=== PATIENT | female | born 1985 | race Caucasian/White ===

== ENCOUNTER 2020-05-30 15:50 | Emergency (ER) | payer OTHER ==
[2020-05-30 16:09] VITALS: BP 116/76; PULSE 71; TEMP 98.8; BMI 31.6
[2020-05-30] MEDS ORDERED: KETOROLAC TROMETHAMINE 30 MG/1 ML VIAL IM ONE (16:36)
[2020-05-30] MEDS ORDERED: CYCLOBENZAPRINE HCL 10 MG TABLET (FP) PO ONE (16:36)
[2020-05-30] MEDS ORDERED: LIDOCAINE 5% TOPICAL PATCH TP ONE (16:36)
[2020-05-30] MEDS ORDERED: LIDOCAINE PATCH REMOVAL MC SCH (22:00)
== END 2020-05-30 17:25 | disposition home or self-care (01) ==
LOC: JERFT 15:50
PROC: 3E0233Z Introduction of Anti-inflammatory into Muscle, Percutaneous Approach (ICD-10-PCS; principal; 2020-05-30)
DX: M54.41 Lumbago with sciatica, right side (principal)
CPT/HCPCS: 72100-TC-FY; 99284-25

== ENCOUNTER 2021-06-01 11:28 | Emergency (ER) | payer OTHER ==
[2021-06-01 11:37] VITALS: BP 116/74; PULSE 78; TEMP 98.3; BMI 29.0
[2021-06-01] MEDS ORDERED: IBUPROFEN 400 MG TABLET (FP) PO ONE ×2 (12:25→12:27)
== END 2021-06-01 12:30 | disposition home or self-care (01) ==
LOC: JERFT 11:28
DX: M25.562 Pain in left knee (principal)
CPT/HCPCS: 99283-25

== ENCOUNTER 2021-08-25 10:41 | Emergency (ER) | payer OTHER ==
[2021-08-25 10:51] VITALS: BP 134/84; PULSE 80; TEMP 98; BMI 29.8
[2021-08-25] MEDS ORDERED: KETOROLAC TROMETHAMINE 30 MG/1 ML VIAL IVPUSH ONE (12:20)
[2021-08-25] MEDS ORDERED: KETOROLAC TROMETHAMINE 30 MG/1 ML VIAL ONE (12:36)
[2021-08-25 13:30] LABS: BASO % 0.6 % (0-2.0); HEMATOCRIT 40.4 % (32.4-45.2); HEMOGLOBIN 13.5 GM/dL (10.7-15.3); LYMPH % 37.7 % (8-40); MCHC 33.4 g/dl (32.0-36.0); MEAN CELL VOLUME 83.9 fl (80-96); MEAN PLT VOLUME 9.1 fl (7.5-11.1); MONO % 8.7 % (3.8-10.2); RBC 4.81 M/mm3 (3.60-5.2); RDW 13.9 % (11.6-15.6); WHITE BLOOD COUNT 4.9 K/mm3 (4.0-10.0)
[2021-08-25 13:32] LABS: PLATELET COUNT 269 10^3/uL (134-434)
[2021-08-25 13:48] LABS: ALBUMIN 3.9 g/dl (3.4-5.0); BLOOD UREA NITROGEN 11.2 mg/dL (7-18); CALCIUM 9.4 mg/dL (8.5-10.1)
[2021-08-25 13:51] LABS: CREATININE 0.7 mg/dL (0.55-1.3)
[2021-08-25 13:53] LABS: BILIRUBIN,TOTAL 0.3 mg/dL (0.2-1); TOT PROT 7.8 g/dl (6.4-8.2)
== END 2021-08-25 19:04 | disposition home or self-care (01) ==
LOC: JER 10:41
PROC: 3E0333Z Introduction of Anti-inflammatory into Peripheral Vein, Percutaneous Approach (ICD-10-PCS; principal; 2021-08-25)
DX: R07.9 Chest pain, unspecified (principal)
CPT/HCPCS: 36415; 71046-TC-FY; 71275-TC; 80053; 84484; 84703; 85025; 85379; 93005; 93010; 99285-25; Q9967